=== PATIENT | male | born 1975 | race Caucasian/White ===

== ENCOUNTER 2016-08-11 09:16 | Emergency (ER) | payer OTHER ==
[2016-08-11] MEDS ORDERED: KETOROLAC 30 MG/ML VIAL IVP ONE (09:33)
--- NOTE | 2016-08-11 09:34 | Emergency Department Record ---
History of Present Illness - General Chief Complaint: Chest Pain Stated Complaint: CHEST PAIN Time Seen by Provider: 08/11/16 09:27 Source: Patient Mode of Arrival: Ambulatory Limitations: No limitations - History of Present Illness Initial Comments: 41 yo male presents with left lateral chest wall pain for one week. The pain started when he was wrestling with his son. The pain is sharp, constant, and hurts to touch. It hurts to move, breath, cough or reach or move his arm. No fever. It is not exertion related. No known cardio-pulmonary disease history. He does not feel a pop or grinding. No shortness of breath but it hurts to breath. No other pain or injuries. PCP is Dr Flowers. Complaint: Chest pain Onset/Timin -: Days(s) Onset: Other Pain Location: Left chest Pain Radiation: LUE Severity: Moderate Quality: Aching Consistency: Intermittent Improves With: Rest Worsens With: Exertion, Inspiration Treatments Prior to Arrival: None - Related Data Home Medications Medication Instructions Recorded Confirmed Last Taken Doxycycline Hyclate [Doxycycline] 100 mg PO BID 08/11/16 08/11/16 08/11/16 Tramadol HCl [Ultram] 50 mg PO Q6H PRN 08/11/16 08/11/16 08/11/16 Previous Rx's Medication Instructions Recorded Hydrocodone/Acetaminophen [[place] 1 tab PO Q6H PRN #15 tab 08/11/16 5mg/325mg] Lidocaine [Lidoderm] 1 each TP DAILY #10 adh..patch 08/11/16 Naproxen [Naprosyn] 500 mg PO Q12H #20 tab. 08/11/16 Allergies Allergy/AdvReac Type Severity Reaction Status Date / Time No Known Drug Allergies Allergy Verified 08/11/16 09:27 Travel Screening - Travel/Exposure Within Last 30 Days Have you traveled within the last 30 days?: No - Travel/Exposure Within Last Year Have you traveled outside the [place] in the last year?: No - Additonal Travel Details Have you been exposed to anyone with a communicable illness?: No - Travel Symptoms Symptom Screening: None Review of Systems Constitutional: Denies: Chills, Fever, Malaise, Weakness Eyes: Denies: Eye discharge, Eye pain, Photophobia ENT: Denies: Congestion, Dental pain, Ear pain, Throat pain Respiratory: Denies: Cough, Dyspnea, Hemoptysis, Stridor, Wheezes Cardiovascular: Reports: As per HPI, Chest pain. Denies: Arrhythmia, Dyspnea on exertion, Edema, Murmurs, Palpitations, Syncope Endocrine: Denies: Fatigue, Polydipsia, Polyuria Gastrointestinal: Denies: Abdominal pain, Diarrhea, Nausea, Vomiting Musculoskeletal: Denies: Arthralgia, Back pain, Gout, Joint swelling, Myalgia, Neck pain Skin: Denies: Bruising, Change in color Neurological: Denies: Headache, Numbness, Vertigo Psychiatric: Denies: Anxiety Hematological/Lymphatic: Denies: Blood Clots, Easy bleeding, Easy bruising, Swollen glands Past Medical History - SOCIAL HISTORY Smoking Status: Current every day smoker Alcohol Use: None Drug Use: Rare Drug Use Detail:: Marijuana - RESPIRATORY Hx Pneumonia: Yes - CARDIOVASCULAR Hx Cardio Disorders: No - NEURO Hx Neuro Disorders: No - GI Hx Reflux: Yes - Comment:: testicular cyst - ENDOCRINE Hx Diabetes: No Hx Thyroid Disease: No - MUSCULOSKELETAL Hx Arthritis: Yes - PSYCH Hx Psych Problems: No - HEMATOLOGY/ONCOLOGY Hx Anemia: No Hx Blood Disorders: No Hx Bruising: No Hx Cancer: No Family Medical History Any Significant Family History?: Yes Hx Diabetes: Grandparents Physical Exam - General General Appearance: Alert, Oriented x3, Cooperative, No acute distress Limitations: No limitations - Head Head exam: Atraumatic, Normocephalic, Normal inspection - Eye Eye exam: Normal appearance. negative: Conjunctival injection, Periorbital swelling - ENT ENT exam: Normal exam, Mucous membranes moist Ear exam: Normal external inspection Nasal Exam: Normal inspection Mouth exam: Normal external inspection Teeth exam: Normal inspection Throat exam: Normal inspection - Neck Neck exam: Normal inspection, Full ROM. negative: Tenderness - Respiratory Respiratory exam: Normal lung sounds bilaterally, Chest wall tenderness (very focal and reproducible tenderness left lateral chest on palpation, no crepitus or subQ air palpable). negative: Accessory muscle use, Decreased breath sounds , Respiratory distress - Cardiovascular Cardiovascular Exam: Regular rate, Normal rhythm, Normal heart sounds. negative : Diastolic murmur, Systolic murmur Peripheral Pulses: 2+: Radial (R), Radial (L) - GI/Abdominal GI/Abdominal exam: Soft, Other (No left upper quadrant tenderness). negative: Distended, Tenderness - Rectal Rectal exam: Deferred - exam: Deferred - Extremities Extremities exam: Normal inspection, Full ROM, Normal capillary refill. negative: Tenderness - Back Back exam: Reports: Normal inspection, Full ROM. Denies: Muscle spasm, Rash noted, Tenderness - Neurological Neurological exam: Alert, Normal gait, Oriented X3 - Psychiatric Psychiatric exam: Normal affect, Normal mood. negative: Agitated, Anxious - Skin Skin exam: Dry, Intact, Normal color, Warm Course Vital Signs 08/11/16 09:18 Temperature 98.0 F Pulse Rate 76 Respiratory 16 Rate Blood Pressure 146/89 Pulse Ox 99 - Reevaluation(s) Reevaluation #1: EKG : NSR rate of 80, the intervals are normal, axis is normal, mild early repol pattern with concave ST segments, no ST reciprocal changes, the EKG is unchanged from 09/15/02. 08/11/16 09:28 Reevaluation #2: The patient has constant pain for about 7 days, it is reproducible on palpation after injury, atypical for cardiac, no strong risk factors for CAD,PE,Aortic disease. Atypical for pericarditis, myocarditis, AMI. With 100% reproducible tenderness and 7 days of never resolving expectation is for negative labs test results. 08/11/16 09:40 08/11/16 09:48 Reevaluation #3: No acute changes on the labs. Negative CRP and Troponin after one week of constant pain that is atypical. 08/11/16 10:22 Reevaluation #4: Prelim CXR reviewed. No PTX of obvious displaced FX. 08/11/16 10:34 Reevaluation #5: CXR was negative We discussed the results, reasons to return, follow up and home care 08/11/16 10:57 08/11/16 10:58 Medical Decision Making - Lab Data Result diagrams: 08/11/16 09:30 08/11/16 09:30 Disposition Disposition: Discharge Clinical Impression: Chest wall pain Disposition: Home, Self-Care Return To Work/School Note Provided: Yes Condition: (1) Good Instructions: Chest Wall Pain (ED) Additional Instructions: Rest and avoid lifting Return if you have uncontrolled pain, fever, short of breath or any other concerns Prescriptions: Lidocaine [Lidoderm] 1 each TP DAILY #10 adh..patch Naproxen [Naprosyn] 500 mg PO Q12H #20 tab. Hydrocodone/Acetaminophen [[place] 5mg/325mg] 1 tab PO Q6H PRN #15 tab PRN Reason: Pain - General Forms: Patient Portal Access Time of Disposition: 10:38
[2016-08-11 09:41] LABS: BASO % 0.6 % (0-6); EOS % 2.1 % (0-6); GRAN % 66.3 % (47-80); HEMATOCRIT 48.3 % (42.0-52.0); HEMOGLOBIN 16.5 gm/dl (14.0-18.0); LYMPH % 25.3 % (16-45); MEAN CELL VOLUME 90.1 fl (81-97); MEAN CORPUSCULAR HEMOGLOBIN 30.8 pg (27-33); MEAN CORPUSCULAR HGB CONC 34.2 g/dl (32-36); MEAN PLATELET VOLUME 8.6 fl (7.4-10.4); MONO % 5.7 % (0-9); PLATELET COUNT 413 K/uL (130-400); RED BLOOD COUNT 5.36 M/uL (4.40-5.70); RED CELL DISTRIBUTION WIDTH 12.2 % (11.5-14.5); WHITE BLOOD COUNT W/O DIFF 12.6 K/uL (4.2-12.2)
[2016-08-11 09:57] LABS: BLOOD UREA NITROGEN 9 mg/dL (9-20); CREATININE 0.7 mg/dL (0.66-1.25); EST GLOMERULAR FILTRATION RATE > 60 ml/min; GLUCOSE,RANDOM 122 mg/dL (70-110)
[2016-08-11 10:06] LABS: C-REACTIVE PROTEIN < 0.5 mg/dL (0.0-0.9); TROPONIN I < 0.012 ng/mL (0.00-0.034)
[2016-08-11] MEDS ORDERED: LIDOCAINE 5% PATCH TOP ONE (10:35)
[2016-08-11 10:36] LABS: ERYTHROCYTE SEDIMENTATION RATE 1 mm/hr (0-15)
== END 2016-08-11 11:13 | disposition home or self-care (01) ==
LOC: ER 09:16
DX: R07.89 Other chest pain (principal); F17.200 Nicotine dependence, unspecified, uncomplicated
CPT/HCPCS: 80048; 84484; 85025; 85651; 86140; 93005; 93010; 96374; 99284; J1885

== ENCOUNTER 2017-01-25 23:56 | Emergency (ER) | payer OTHER ==
[2017-01-26] MEDS ORDERED: TRAMADOL HCL 50 MG TABLET PO ONE (00:26)
--- NOTE | 2017-01-26 00:33 | Emergency Department Record ---
History of Present Illness - General Stated Complaint: ANKLE PAIN Time Seen by Provider: 01/26/17 00:25 Source: Patient Mode of Arrival: Wheelchair Limitations: No limitations - History of Present Illness Initial Comments: 41 yo male presents to ED with a CC of inversion injury to the left ankle after stepping into a hole approximately 1 hours ago. Patient reports hearing a "pop " with associated immediate pain and swelling symptoms. Patient denies other injury, and denies analgesia prior to arrival. Patient does report taking Tramadol for his chronic back pain earlier this evening. Patient pain with weight bearing, applied ice prior to arrival. MD Complaint: Ankle injury Onset/Timin -: Hour(s) Injury: Ankle: Left Type of Injury: Inversion Place: Home Severity: Severe Improves With: Cold therapy Worsens With: Weight bearing Context: Walking Treatments Prior to Arrival: Cold therapy - Related Data Allergies Allergy/AdvReac Type Severity Reaction Status Date / Time No Known Drug Allergies Allergy Verified 08/11/16 09:27 Review of Systems Constitutional: Denies: Chills, Fever, Malaise, Night sweats Eyes: Denies: Eye discharge, Eye pain ENT: Denies: Congestion, Ear pain, Epistaxis Respiratory: Denies: Cough, Dyspnea Cardiovascular: Denies: Chest pain, Dyspnea on exertion Endocrine: Denies: Fatigue, Heat or cold intolerance Gastrointestinal: Denies: Abdominal pain, Nausea, Vomiting Genitourinary: Denies: Retention Musculoskeletal: Reports: Arthralgia, Joint swelling. Denies: Back pain, Gout Skin: Denies: Bruising, Change in color Neurological: Denies: Abnormal gait, Confusion, Headache, Seizure Psychiatric: Denies: Anxiety Hematological/Lymphatic: Denies: Anemia, Blood Clots Past Medical History - SOCIAL HISTORY Smoking Status: Current every day smoker Drug Use: Rare Drug Use Detail:: Marijuana - RESPIRATORY Hx Pneumonia: Yes - CARDIOVASCULAR Hx Cardio Disorders: No - NEURO Hx Neuro Disorders: No - GI Hx Reflux: Yes - Comment:: testicular cyst - ENDOCRINE Hx Diabetes: No Hx Thyroid Disease: No - MUSCULOSKELETAL Hx Arthritis: Yes - PSYCH Hx Psych Problems: No - HEMATOLOGY/ONCOLOGY Hx Anemia: No Hx Blood Disorders: No Hx Bruising: No Hx Cancer: No Family Medical History Hx Diabetes: Grandparents Physical Exam - General General Appearance: Alert, Oriented x3, Cooperative, Moderate distress (due to the patient's pain symptoms) Limitations: No limitations - Head Head exam: Atraumatic, Normocephalic, Normal inspection Head exam detail: negative: Abrasion, Contusion, Jerome's sign, General tenderness, Hematoma, Laceration - Eye Eye exam: Normal appearance. negative: Conjunctival injection, Periorbital swelling, Periorbital tenderness, Scleral icterus - ENT Ear exam: negative: Auricular hematoma, Auricular trauma Nasal Exam: negative: Active bleeding, Discharge, Dried blood, Foreign body Mouth exam: negative: Drooling, Laceration, Muffled voice, Tongue elevation - Neck Neck exam: Normal inspection. negative: Meningismus, Tenderness - Respiratory Respiratory exam: Normal lung sounds bilaterally. negative: Rales, Respiratory distress, Rhonchi, Stridor - Cardiovascular Cardiovascular Exam: Regular rate, Normal rhythm, Normal heart sounds Peripheral Pulses: 3+: Dorsalis Pedis (L) - GI/Abdominal GI/Abdominal exam: Soft. negative: Rebound, Rigid, Tenderness - Rectal Rectal exam: Deferred - exam: Deferred - Extremities Extremities exam: Joint swelling, Tenderness, Other (TTP to the left lateral ankle on examination, STS present, pain with palpation of the left foot or lower leg, compartments are soft on examination.). negative: Calf tenderness, Pedal edema - Back Back exam: Denies: CVA tenderness (R), CVA tenderness (L) - Neurological Neurological exam: Alert, Oriented X3. negative: Motor sensory deficit - Psychiatric Psychiatric exam: Normal affect, Normal mood - Skin Skin exam: Normal color. negative: Abrasion Type of lesion: negative: abrasion Course - Reevaluation(s) Reevaluation #1: 01/26/17 01:29 Left ankle: Distal fibula avulsion fracture patient was updated on all results, will place in fracture boot with instructions for follow-up with Dr. Evans next week in the [facility] Specialty clinic as directed. Disposition Disposition: Discharge Clinical Impression: Fracture of distal end of left fibula Qualifiers: Encounter type: initial encounter Fracture type: closed Fracture morphology: other fracture Qualified Code(s): S82.832A - Other fracture of upper and lower end of left fibula, initial encounter for closed fracture Disposition: Home, Self-Care Condition: (2) Stable Instructions: Avulsion Fracture (ED) Additional Instructions: Return to ED if your symptoms worsen or if you have any concerns. Fracture boot when ambulating. Continue Tramadol as directed. Follow-up with Dr. Evans in 3-5 days as directed. Referrals: PHOENIX EVANS [DOCTOR OF OSTEOPATH] - [facility] Specialty Clinics [Provider Group] Forms: Patient Portal Access Time of Disposition: 01:33 Quality - Quality Measures Quality Measures: N/A - Blood Pressure Screening Does Patient Have Any of the Following: No Blood Pressure Classification: Normal BP Reading Systolic Measurement: 102 Diastolic Measurement: 68 Screening for High Blood Pressure: < Normal BP, F/U Not Required > [G8783]
--- NOTE | 2017-01-27 15:44 | RADIOLOGY REPORT ---
DATE: 01/26/2017 at 1:22 a.m. EXAM: LEFT ANKLE. HISTORY: Left ankle pain status post fall. TECHNIQUE: Three views of the left ankle were obtained. COMPARISON: None. FINDINGS: There is a small, nondisplaced fracture involving the distal tip of the lateral malleolus. There is overlying soft tissue swelling. A chronic calcific density is also present inferior to the lateral malleolus. The ankle mortis is intact. The remaining osseus structures are unremarkable. IMPRESSION: SMALL, NONDISPLACED FRACTURE INVOLVING THE DISTAL TIP OF THE LATERAL MALLEOLUS. JOB NUMBER: [id number] [facility]
== END 2017-01-26 01:49 | disposition home or self-care (01) ==
LOC: ER 23:56
DX: S82.832A Other fracture of upper and lower end of left fibula, initial encounter for closed fracture (principal); X50.0XXA Overexertion from strenuous movement or load, initial encounter; Y92.007 Garden or yard of unspecified non-institutional (private) residence as the place of occurrence of the external cause
CPT/HCPCS: 99283

== ENCOUNTER 2017-01-28 17:13 | Emergency (ER) | payer OTHER ==
--- NOTE | 2017-01-28 17:53 | Emergency Department Record ---
History of Present Illness - General Chief Complaint: Ankle/Foot Injury Stated Complaint: LT FOOT BROKEN, HIGH PAIN Time Seen by Provider: 01/28/17 17:44 Source: Patient Mode of Arrival: Wheelchair Limitations: No limitations - History of Present Illness Initial Comments: 41 yo male presents with pain of the ankle. On 01/26 he was seen in the ED for an inversion type injury. XR demonstrated a Non Displaced fracture of the distal fibula. He states his pain is not well controlled with Tramadol and Ibuprofen. He is icing and elevating. He was referred to the Specialty Clinic at [facility]. He has pain and swelling with bruising in the foot. No blister. MD Complaint: Ankle injury Onset/Timin -: Days(s) Injury: Ankle: Left, Foot: Left Type of Injury: Inversion, Other Place: Home Severity: Severe Severity scale (1-10): 10 Improves With: Nothing Worsens With: Weight bearing Context: Fall Associated Symptoms: Unable to bear weight - Related Data Previous Rx's Medication Instructions Recorded Hydrocodone/Acetaminophen [[place] 1 each PO Q8H #20 tablet 01/28/17 7.5-325 Tablet] Allergies Allergy/AdvReac Type Severity Reaction Status Date / Time No Known Drug Allergies Allergy Verified 08/11/16 09:27 Travel Screening - Travel/Exposure Within Last 30 Days Have you traveled within the last 30 days?: No Review of Systems Constitutional: Denies: Chills, Fever, Malaise, Weakness Eyes: Denies: Eye discharge, Eye pain, Photophobia, Vision change ENT: Denies: Congestion, Throat pain Respiratory: Denies: Cough, Dyspnea, Hemoptysis, Stridor, Wheezes Cardiovascular: Denies: Chest pain, Palpitations, Syncope Endocrine: Denies: Fatigue Gastrointestinal: Denies: Abdominal pain, Diarrhea, Nausea, Vomiting Genitourinary: Denies: Dysuria, Frequency, Hematuria Musculoskeletal: Reports: As per HPI, Arthralgia, Joint swelling. Denies: Back pain Skin: Reports: As per HPI, Bruising, Change in color Neurological: Denies: Confusion, Numbness, Tremors, Vertigo, Weakness Psychiatric: Denies: Anxiety Hematological/Lymphatic: Denies: Blood Clots, Easy bleeding, Easy bruising, Swollen glands Past Medical History - SOCIAL HISTORY Smoking Status: Current every day smoker - RESPIRATORY Hx Pneumonia: Yes - CARDIOVASCULAR Hx Cardio Disorders: No - NEURO Hx Neuro Disorders: No - GI Hx Reflux: Yes - Comment:: testicular cyst - ENDOCRINE Hx Diabetes: No Hx Thyroid Disease: No - MUSCULOSKELETAL Hx Arthritis: Yes - PSYCH Hx Psych Problems: No - HEMATOLOGY/ONCOLOGY Hx Anemia: No Hx Blood Disorders: No Hx Bruising: No Hx Cancer: No Family Medical History Any Significant Family History?: Yes Hx Diabetes: Grandparents Physical Exam - General General Appearance: Alert, Oriented x3, Cooperative, No acute distress Limitations: No limitations - Head Head exam: Atraumatic, Normal inspection - Eye Eye exam: Normal appearance. negative: Conjunctival injection - ENT ENT exam: Normal exam Ear exam: Normal external inspection Nasal Exam: Normal inspection Mouth exam: Normal external inspection - Neck Neck exam: Normal inspection - Cardiovascular Peripheral Pulses: 2+: Dorsalis Pedis (L) - Rectal Rectal exam: Deferred - exam: Deferred - Extremities Extremities exam: Joint swelling, Normal capillary refill, Tenderness. negative : Normal inspection Image of Feet: 1 - lateral ankle tenderness with bruising, bruising to the lateral foot, difuse mild foot sweling, intact skin, brisk CR and pulses. - Back Back exam: Denies: CVA tenderness (R), CVA tenderness (L) - Neurological Neurological exam: Alert, Motor sensory deficit, Oriented X3 - Psychiatric Psychiatric exam: Normal affect, Normal mood - Skin Skin exam: Other (brusiing to the foot and ankle, the foot is appropriately warm to touch with brisk CR) Course Vital Signs 01/28/17 17:32 Temperature 98.2 F Pulse Rate 85 Respiratory 20 Rate Blood Pressure 122/66 Pulse Ox 99 - Reevaluation(s) Reevaluation #1: EMR reviewed ND distal lateral malleolus fx Will also add foot XR 01/28/17 17:56 XR was negative for acute fracture DC with his follow up His pain is well controlled with the morphine 01/28/17 19:20 Disposition Disposition: Discharge Clinical Impression: Fracture of distal end of left fibula Qualifiers: Encounter type: initial encounter Fracture type: closed Fracture morphology: unspecified fracture morphology Qualified Code(s): S82.832A - Other fracture of upper and lower end of left fibula, initial encounter for closed fracture Disposition: Home, Self-Care Return To Work/School Note Provided: Yes Condition: (1) Good Instructions: Ankle Fracture (ED) Additional Instructions: Follow up with Dr Delcid as scheduled REturn if your pain is not controlled Continue to ice and elevate Prescriptions: Hydrocodone/Acetaminophen [[place] 7.5-325 Tablet] 1 each PO Q8H #20 tablet Forms: Patient Portal Access Time of Disposition: 19:23 Quality - Quality Measures Quality Measures: N/A - Blood Pressure Screening Does Patient Have Any of the Following: No Blood Pressure Classification: Pre-Hypertensive BP Reading Systolic Measurement: 122 Diastolic Measurement: 66 Screening for High Blood Pressure: < Pre-Hypertensive BP, F/U Documented > [ G8950] Pre-Hypertensive Follow-up Interventions: Referral to alternative/primary care provider.
[2017-01-28] MEDS: MORPHINE SULFATE 5 MG/ML PFS IM ONE (18:09)
--- NOTE | 2017-01-30 08:04 | RADIOLOGY REPORT ---
EXAM: LEFT FOOT, THREE VIEWS HISTORY: PATIENT HAS A HISTORY OF RECENT ANKLE FRACTURE. NOW PATIENT HAS FOOT PAIN. TECHNIQUE: Three views of the left foot are provided along with a comparison x- ray of the left ankle done on 01/26/17. FINDINGS: There is no radiographic evidence of an acute fracture or dislocation of the left foot. Accessory ossicles that are adjacent to the cuboid bone. Soft tissue swelling is noted at the dorsum of the distal left foot. IMPRESSION: SOFT TISSUE SWELLING IS NOTED AT THE DORSUM OF THE DISTAL LEFT FOOT WITHOUT RADIOGRAPHIC EVIDENCE OF AN ACUTE FRACTURE OR DISLOCATION OF THE LEFT FOOT DISCUSSED ABOVE. JOB NUMBER: [id number] [facility]
== END 2017-01-28 19:39 | disposition home or self-care (01) ==
LOC: ER 17:13
DX: G89.11 Acute pain due to trauma (principal); M25.572 Pain in left ankle and joints of left foot; M79.672 Pain in left foot; S82.832A Other fracture of upper and lower end of left fibula, initial encounter for closed fracture; X50.9XXA Other and unspecified overexertion or strenuous movements or postures, initial encounter; Y92.009 Unspecified place in unspecified non-institutional (private) residence as the place of occurrence of the external cause
CPT/HCPCS: 99283; 96372; 99284; 73630; J2270